=== PATIENT | male | born 1955 | race Caucasian/White ===

== ENCOUNTER 2023-08-29 09:14 | Outpatient (CLI) | payer MEDICARE, OTHER, SELFPAY ==
--- NOTE | 2023-08-29 09:25 | ECG_ITS ---
Measurements Intervals [place] Rate: 68 P: WA: 0 QRS: 16 QRSD: 86 T: 76 QT: 396 QTc: 422 Interpretive Statements SINUS RHYTHM WITH PREMATURE VENTRICULAR CONTRACTIONS MINIMAL ST DEPRESSION [0.025+ mV ST DEPRESSION] ABNORMAL RHYTHM ECG NO PREVIOUS ECG AVAILABLE FOR COMPARISON Electronically Signed On 08-29-2023 13:59:47 [employer]ORAGE MANAGEMENT ARCHITECT by Shayy Nuñez M.D.
== END 2023-08-29 09:15 | disposition home or self-care (01) ==
PROVIDERS: PCP Internal Medicine; Visit Provider Plastic Surgery
DX: Z01.818 Encounter for other preprocedural examination (principal); I10 Essential (primary) hypertension; R93.1 Abnormal findings on diagnostic imaging of heart and coronary circulation
CPT/HCPCS: 93005

== ENCOUNTER 2023-09-05 00:12 | Day surgery (SDC) | payer MEDICARE, OTHER, SELFPAY ==
--- NOTE | 2023-08-26 08:27 | PC.NURSE ---
Report to the Outpatient Waiting Room, entrance under the green pavilion located off [facility], at time _0700 on date __09/05/23 . Planned Procedure Time: ___0900 . Time changes happen often and if your time is changed the preop area will call you the afternoon before. - You and your visitor will be asked to self-screen and do not enter if you have any COVID symptoms. - A mask is optional within the hospital at this time. Patients may have clear liquids (water, carbonated beverages, clear teas, apple juice) until 3 hours prior to surgery( 6:OO AM ) with a maximum of 20 ounces. - No food from midnight until time of surgery - Infants may have breast milk until 4 hours before surgery, formula 6 hours prior to surgery. - Children will be allowed to drink immediately following surgery. If applicable, please bring a bottle or sippy cup to assist with drinking. Juice, water, soda, and popsicles are readily available. For infants on formula, please bring formula the day of surgery. Pacifiers are allowed. Take the following medications with a SIP of water the morning of surgery: __AMLODIPINE, DO NOT STOP ANY OF YOUR OTHER PRESCRIPTION MEDICATIONS PRIOR TO SURGERY ?EXCEPT THE FOLLOWING Medications to discontinue per physician ___ALL VITAMINS AND SUPPLEMENTS 3 DAYS PRE OP.LAST DOSE 09/01/23 Please no make-up, nail uzbek, hairspray, perfume, deodorant, or body powder the day of surgery. No jewelry (including any body piercings) or valuables the day of surgery, leave them at home. Please take a shower or bath the night before, or the morning of, surgery with an antibacterial soap. Wear comfortable, loose fitting clothing. Children are encouraged to wear pajamas. - Jewelry must be removed prior to entering the operating room. Rings and piercings that are not removed may be cut off. - The hospital will not accept responsibility for valuables. - Please leave all valuables, including medications, at home the day of surgery. If you are going home after surgery, a licensed auto crane driver must drive you home. - NO public transportation without another adult if you receive anesthesia. - We recommend that an adult stay with you for 24 hours following discharge. - We also recommend that you do not drive, make important decision, drink alcoholic beverages, or take any drugs that were not prescribed by your health care provider for at least 24 hours after your discharge time. Follow any additional instructions given to you from your surgeon. If you or anyone in your household have experienced Covid symptoms in the past week, please notify your surgeon or the nurse liaison at the phone number below for possible testing. Telephone instructions given to ___PATIENT and asked if any additional questions and then verbalized understanding. Patient advised to call surgeon office or pre surgery nurse liaison [phone] if any additional questions.
[2023-08-26 08:33] VITALS: BMI 26.6
[2023-09-05] VITALS (7 sets, daily range): BP systolic 119–151; BP diastolic 69–78; PULSE 53–61; RESP 12–20; TEMP 36.2–36.7; O2SAT 93–100
--- NOTE | ~2023-09-05 | XR_ITS ---
EXAMINATION: XR surgery orthopedic DATE: 09/05/2023 10:55 INDICATION: Right trapezium resection. TECHNIQUE: 2 fluoroscopic images of the right carpus were obtained during procedure performed by Dr. Fish. Radiologist was not present for the imaging or procedure. The amount of fluoroscopy time used during this procedure was 1.1 minutes. COMPARISON: None. FINDINGS: Trapezium is absent consistent with provided history of right trapezial resection with small amount o f lucent gas at the operative bed. Minimal ulnar minus variance. Alignment of the remaining bones is otherwise normal. No fracture. 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 IMPRESSION: 1. Expected appearance post trapezium resection. Reviewed, dictated and finalized at location A. COORDINATOR
[2023-09-05] MEDS: ACETAMINOPHEN 500 MG TABLET 1000 MG PO (08:11)
--- NOTE | 2023-09-05 08:12 | WPDANESEPPF ---
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 Patient Data Age: 68 Gender: M Height: 1.75 m Weight: 81.7 kg Allergies Allergy/AdvReac Type Severity Reaction Status Date / Time No Known Allergies Allergy Unknown Verified 09/05/23 08:03 Home Medications Medication Instructions Recorded Confirmed Type amlodipine 10 mg tablet 10 mg PO DAILY #90 tabs 06/01/20 09/05/23 Rx ascorbic acid (vitamin C) 500 mg 500 mg PO DAILY 08/26/23 09/05/23 History capsule atorvastatin 80 mg tablet 80 mg PO HS 08/26/23 09/05/23 History cholecalciferol (vitamin D3) 125 125 mcg PO DAILY 08/26/23 09/05/23 History mcg (5,000 unit) capsule coQ10 (ubiquinol) 100 mg capsule 100 mg PO DAILY 08/26/23 09/05/23 History finasteride 5 mg tablet 5 mg PO DAILY 08/26/23 09/05/23 History ibuprofen 200 mg tablet 200 mg PO Q6H PRN Pain 08/26/23 08/26/23 History zinc 15 mg tablet 15 mg PO DAILY 08/26/23 09/05/23 History Patient hx anesthesia problems: none Family hx anesthesia problems: none Results Review: All pre-operative results and documents have been reviewed as part of the pre-operative evaluation. [facility] Family History Family History (Updated 03/25/14 @ 07:13 by DOCTOR UNKNOWN) Father Family history of rheumatoid arthritis Family history of ulcerative colitis Social History Social History Smoking status: Never smoker Second hand tobacco smoke exposure: No Alcohol intake: current Drinks per week: 7 Living arrangements: with family Spiritual care concerns: No Anes - Eval Final PreProcedure Day of Procedure 09/05/23 08:12 Patient weight: normal Heart: regular rate and rhythm Lungs: clear to auscultation Airway: Mallampati scale class III (has TMJ issues) Neurological: alert and oriented Last oral intake: >/= 8 hours ASA classification: II Emergent: no Anesthetic plan: proceed Anesthesia type and monitoring: general LMA and standard monitoring Results Review: All pre-operative results and documents have been reviewed as part of the pre-operative evaluation. Informed Consent: The patient's anesthetic plan and its attendant risks and benefits were discussed with the patient/family/POA. Questions were solicited and answers provided to the satisfaction of the patient/family/POA.
[2023-09-05] MEDS: LACTATED RINGERS 1,000 ML 30 ML IV CONT (08:15)
--- NOTE | 2023-09-05 08:47 | WPDHPUPDATE1 ---
History and Physical Update Update Date/Time: 09/05/23 08:47 History and Physical has been reviewed, including an updated exam of the patient. There are NO changes in the patient's condition. Risks, benefits, and alternatives have been discussed and questions answered. Patient agrees to proceed with procedure.
[2023-09-05] MEDS: ceFAZolin 2 GM/D5W 50 ML 2 GM/50 ML BAG IVPB (08:53)
[2023-09-05] MEDS: LIDO 1%/EPINEPHRINE 1:100,000 20 ML VIAL 3 ML INFILTRATE (09:18)
[2023-09-05] MEDS: BUPivacaine HCL 0.5% PF 30 ML VIAL INFILTRATE (09:47)
[2023-09-05] MEDS: fentaNYL CITRATE INJ (*CRX) 100 MCG/2 ML VIAL 25 MCG IV PUSH ×4 (11:16→11:29)
--- NOTE | 2023-09-05 11:19 | W.PM.PROC2 ---
Procedure Note - Detailed Date of Procedure 09/05/23 Pre-op Diagnosis right 1st CMC arthritis Post-op Diagnosis Same Procedure Performed Right trapezium resection arthroplasty with Arthrex internal brace under general anesthesia Surgeon Zachery Fish MD [employer] Ale lombardo Anesthesia General Description of Procedure The patient's right 1st carpal metacarpal joint region was marked with his consent in the holding area. He was taken to the operating room was placed supine on the operating table. He was given general anesthesia. The right upper extremity was prepped and draped in usual fashion. Site was marked for the incision. A time-out was held and confirmed. The site was infiltrated with 1% lidocaine with epinephrine. The extremity was exsanguinated and the tourniquet inflated to 250 mmHg. The incision was made as marked centered on the 1st carpal metacarpal joint. The several 2-3 mm cutaneous nerves were identified and carefully retracted throughout the entire procedure. Sharp blunt dissection around the trapezium did not allow to be removed in 1 piece. It was divided was then osteotome and mallet. The remainder was taken out with a rongeur. Several x-rays were taken to confirm the evacuation of the space. The appropriate position angle of the 1st anchor was determined with C-arm images. The hole was drilled and the Arthrex suture lock was placed. This was secure. Attention was turned to the base of the 1st metacarpal and the appropriate fenestration was made for the SwiveLock. The 2 strands of suture tape were placed over the anchor and both inserted into the drilled hole satisfactorily. The tape was cut. Images were made to determine the stability of this construct. The site was irrigated. The capsule was repaired as well as could be with interrupted 3-0 Vicryl sutures. The tourniquet was released at 76 minutes. The skin wound was closed with intradermal 3-0 Monocryl suture. 5 milliliter of 0.25% Marcaine were instilled across the cutaneous nerves in that region. A bandage and splint were applied allowing free used in fingers and the distal phalanx of the thumb. He was discharged from the operating room stable condition. He was given 2 g Ancef preop and 1000 mg of acetaminophen . He was discharge instructions wound care and follow-up and a prescription for hydrocodone 5/325 5. Tourniquet Time Total Tourniquet Time: 75 Drains No Packing No Pathology None sent Complications No immediate complications Condition Stable Disposition PACU
== END 2023-09-05 12:32 | disposition home or self-care (01) ==
PROVIDERS: PCP Internal Medicine; Visit Provider Plastic Surgery
PROC: (CPT 25447; principal; 2023-09-05 09:00)
DX: M18.11 Unilateral primary osteoarthritis of first carpometacarpal joint, right hand (principal)
CPT/HCPCS: 25447; 99199; A9270; C1713; J0690; J1100; J1170; J2250; J2405; J2704; J3010; J7120